=== PATIENT | male | born 1990 | race African-American/Black ===

== ENCOUNTER 2016-05-23 18:55 | Observation (INO) | payer SELFPAY ==
--- NOTE | 2016-05-23 19:23 | PDOC ---
Rapid Medical Evaluation Time Seen by Provider: 05/23/16 18:58 Medical Evaluation: 05/23/16 19:22 I have performed a brief in-person evaluation of this patient. This is a 25 yo M with no past medical history who presents to the ER with a complaint of right sided chest pain. Pain began after he got out of the Jacuzzi. No alleviating factors. Worse with movement and deep breath. Pain is associated with shortness of breath. He had this one week before that, states he had chest pain which was severe and associated with diaphoresis but resolved. He did not seek medical attention. Pertinent physical exam findings: Pt holding right side of chest Bilateral breath sounds no rash I have ordered the following: EKG CXR Labs EKG sinus rhythm, III, aVF T wave inversions The patient will proceed to the ED for further evaluation. 05/23/16 19:24 05/23/16 19:29
[2016-05-23 19:28] VITALS: BMI 32.3
--- NOTE | 2016-05-23 19:51 | PDOC ---
History of Present Illness - General Chief Complaint: Chest Pain Stated Complaint: CHEST PAIN Time Seen by Provider: 05/23/16 18:58 - History of Present Illness Initial Comments: 05/23/16 19:49 CHIEF COMPLAINT: chest pain HISTORY OF PRESENT ILLNESS: 25-year-old male with history of uncontrolled hypertension, obesity presents to ED with right-sided chest pain for the last 2 days. Patient states that he recently took a bus in from [place] for 15 hours and then is staying in a hotel with his girlfriend who is an OR tech. He states that he went to the [email or web address] at the hotel when he came in 2 days ago and when he got out of the [place] was having chest pain and was sweating a lot. Patient does report a lot of recent physical activity and using the gym in the last few days. He also reports having spasms to the hip, back, and "charley horses" to both legs. He describes this chest pain as a stabbing pain that is worsened with inspiration. He does report recent cocaine use for "about a month. " No recent travel or sick contacts. PAST MEDICAL HISTORY: Denies past medical history FAMILY HISTORY: Denies SOCIAL HISTORY: Current smoker, 1 pack daily. Recent cocaine use "for a month" , frequent marijuana use. SURGICAL HISTORY: Denies ALLERGIES: No known drug allergies REVIEW OF SYSTEMS General/Constitutional: Denies fever or chills. Denies weakness, weight change. HEENT: Denies change in vision. Denies ear pain or discharge. Denies sore throat. Cardiovascular: Right sided pleuritic chest pain. Respiratory: Denies cough, wheezing, or hemoptysis. Gastrointestinal: Denies nausea, vomiting, diarrhea or constipation. Denies rectal bleeding. Genitourinary: Denies dysuria, frequency, or change in urination. Musculoskeletal: "[place] horses to both legs." Denies joint or muscle swelling or pain. Denies neck or back pain. Skin and breasts: Denies rash or easy bruising. Neurologic: Denies headache, vertigo, loss of consciousness, or loss of sensation. PHYSICAL EXAM General Appearance: Well-appearing, appropriately dressed. No apparent distress , no intoxication. HEENT: EOMI, PERRLA, normal ENT inspection, normal voice, TMs normal, pharynx normal. No conjunctival pallor. No photophobia, scleral icterus. Neck: Supple. Trachea midline. No tenderness, rigidity, carotid bruit, stridor , lymphadenopathy, or thyromegaly. Respiratory/Chest: Lungs CTAB. Cardiovascular: RRR. S1, S2. Vascular Pulses: Dorsalis-Pedis (R): 2+, Dorsalis-Pedis (L): 2+ Gastrointestinal/Abdominal: Normal bowel sounds. Abdomen soft, non-distended. No tenderness or rebound tenderness. No organomegaly, pulsatile mass, guarding , hernia, hepatomegaly, splenomegaly. Lymphatic: No adenopathy, tenderness. Musculoskeletal/Extremities: Left calf tenderness, none to right calf. Negative Taiwo's sign b/l. Normal inspection. FROM of all extremities, normal capillary refill. Pelvis Stable. No CVA tenderness. No tenderness to extremities, pedal edema, swelling, erythema or deformity. Integumentary: Appropriate color, dry, warm. 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 Fully oriented, alert. Appropriate mood/affect. Motor strength 5/5. No appreciable EOM palsy, facial droop or sensory deficit. 05/23/16 20:46 Past History - Past Medical History Allergies/Adverse Reactions: Allergies Allergy/AdvReac Type Severity Reaction Status Date / Time No Known Allergies Allergy Verified 05/23/16 19:25 Home Medications: Ambulatory Orders NK [No Known Home Medication] 05/23/16 Other medical history: denies - Psycho/Social/Smoking Cessation Hx Suicidal Ideation: No Smoking History: Current every day smoker Number of Cigarettes Smoked Daily: 20 Information on smoking cessation initiated: Yes 'Breaking Loose' booklet given: 05/23/16 Hx Alcohol Use: No Drug/Substance Use Hx: No *Physical Exam - Vital Signs Last Vital Signs Temp Pulse Resp BP Pulse Ox 98.1 F 77 18 145/69 98 05/23/16 19:25 05/23/16 19:25 05/23/16 19:25 05/23/16 19:25 05/23/16 19:25 Heart Score/ECG Review - History History: Moderately suspicious - Electrocardiogram EKG: Non specific repolarization disturbance - Age Age: </= 45 - Risk Factors Risk Factors Heart Score: Yes Hx Hypertension, Yes Smoking History, Yes Hx Obesity Based on the list above the patient has:: >/=3 risk factors or Hx atherosclerotic disease - Troponin Troponin: </= normal limit - Score Heart Score - Total: 4 - ECG Intrepretation Rhythm: Regular Rhythm ED Treatment Course - LABORATORY CBC & Chemistry Diagram: 05/23/16 19:50 05/23/16 19:50 - ADDITIONAL ORDERS Additional order review: Laboratory Results 05/23/16 05/23/16 05/23/16 20:36 19:50 19:50 D-Dimer < 200 Sodium 133 L Potassium 3.8 Chloride 95 L Carbon Dioxide 28 Anion Gap 10 BUN 26 H Creatinine 1.8 H Creat Clearance w eGFR 45.49 Random Glucose 142 H Calcium 10.7 H Total Bilirubin 1.2 H AST 44 H ALT 59 Alkaline Phosphatase 103 Creatine Kinase 1411 H Creatine Kinase Index 0.2 CK-MB (CK-2) 2.660 CK-MB (CK-2) Rel Index Cancelled Troponin I 0.04 Total Protein 10.2 H Albumin 5.2 H 05/23/16 19:50 RBC 6.06 H MCV 88.1 MCHC 33.6 RDW 13.2 MPV 8.7 Neutrophils % 60.2 Lymphocytes % 26.5 Monocytes % 11.1 H Eosinophils % 0.9 Basophils % 1.3 - RADIOLOGY Radiology Studies Ordered: Category Date Time Status DUPLEX VASCUL US-2LEGS [US] Stat Ultrasound 05/23/16 20:14 Completed - Medications Given in the ED: ED Medications Discontinued Medications Generic Name Dose Route Start Last Admin Trade Name Freq PRN Reason Stop Dose Admin Sodium Chloride 1,000 ml 05/23/16 21:11 05/23/16 21:12 Normal Saline - IV 05/23/16 21:12 1,000 ml ONCE ONE Administration Medical Decision Making - Medical Decision Making 05/23/16 20:58 25 yo M with hx of HTN presents to ED with right sided chest pain x 2 days and bilateral leg pain -CBC, CMP, Trop, D-dimer -CXR -EKC -Duplex U/S 05/23/16 21:52 Labs: 1st trop negative at 0.4. D-dimer negative. Creatinine 1.8, BUN 26 - no baseline or hx of renal dysfunction. -1L NS Will repeat trop for GAURI. Ultrasound negative for DVT b/l. Discussed case with ER attending MD Kennedy, will obs patient for GAURI. Disucssed case with hospitalist attending MD Cota, who admits patient to obs. 05/23/16 22:18 *DC/Admit/Observation/Transfer Diagnosis at time of Disposition: Chest pain, rule out acute myocardial infarction - Discharge Dispostion Admit: Yes
[2016-05-23 20:06] LABS: BASOPHIL 1.3 % (0-2.0); EOSINOPHIL 0.9 % (0-4.5); MCH 29.6 pg (25.7-33.7); MCHC 33.6 g/dl (32.0-35.9); MEAN CELL VOLUME 88.1 fl (80-96); MEAN PLT VOLUME 8.7 fl (7.5-11.1); NEUTROPHILS 60.2 % (42.8-82.8); PLATELET COUNT 354 K/MM3 (134-434); RDW 13.2 % (11.9-15.9); WHITE BLOOD COUNT 9.6 K/mm3 (4.0-10.0)
[2016-05-23 20:19] LABS: ALBUMIN 5.2 g/dl (3.4-5.0); BILIRUBIN,TOTAL 1.2 mg/dL (0.2-1.0); CALCIUM 10.7 mg/dL (8.5-10.1); CREATININE 1.8 mg/dL (0.7-1.3); TOT PROT 10.2 g/dl (6.4-8.2)
[2016-05-23 20:31] LABS: TROPONIN I 0.04 ng/ml (0.00-0.05)
[2016-05-23] MEDS ORDERED: SODIUM CHLORIDE 0.9% 1000 ML INFUS.BAG IV ONE (21:11)
[2016-05-23 21:33] LABS: PLATELET ESTIMATE ADEQUATE (NORMAL)
[2016-05-23] MEDS ORDERED: ASPIRIN 81 MG CHEWABLE TABLETS PO ONE (21:58)
[2016-05-23] MEDS ORDERED: ASPIRIN 81 MG CHEWABLE TABLETS ONE (22:05)
--- NOTE | 2016-05-23 22:11 | PN ---
<Latanya Cota - Last Filed: 05/23/16 22:10> Teaching Attending Note Name of Resident: Antonio Quinn <Ruby Burch - Last Filed: 05/24/16 02:30> Teaching Attending Note ATTENDING PHYSICIAN STATEMENT I saw and evaluated the patient. I reviewed the resident's note and discussed the case with the resident. I agree with the resident's findings and plan as documented. SUBJECTIVE: The patient is a 25 yo M with a PMHx of cocaine use who presents with R sided chest pain for the past 2 days. The patient describes the chest pain as a stabbing sensation which is exacerbated upon deep inspiration. The patient states his chest pain is associated with diaphoresis however denies any associated chest palpitations, headache or dizziness. Recently, the patient was on a 15 hour bus trip from [place] and since arriving in [place] he has been staying at a nearby hotel. Upon using the hotels [employer], he felt diaphoretic and an immediate onset of R sided chest pain. The patient denies taking any pain medications for relief. He states has been using cocaine for the past month. Patient notes he recently donated plasma and since then has been experiencing muscle spasms. He presents to the ED for further evaluation. PMHx: uncontrolled HTN, Obesity, DORITA vs CKD PSHx: R ankle 2013 Social Hx: Smokes half pack/day, Marijuana and cocaine use Fam hx: Father with MO and Mother with Asthma OBJECTIVE: Last Vital Signs Temp Pulse Resp BP Pulse Ox 97.5 F L 58 L 18 133/78 95 05/24/16 00:00 05/24/16 00:00 05/24/16 00:00 05/24/16 00:00 05/24/16 00:00 GENERAL: Awake, alert, and fully oriented, in no acute distress HEENT: Atraumatic. PERRLA, EOMI. Moist mucosa. No JVD LUNGS: No distress, speaks full sentences, clear to auscultation bilaterally HEART:+ Tenderness to R chest wall. Regular rate and rhythm, normal S1 and S2, no murmurs, rubs or gallops, peripheral pulses normal and equal bilaterally. ABDOMEN: Soft, nontender, normoactive bowel sounds. No guarding, no rebound. No masses EXTREMITIES: Normal inspection, Normal range of motion, no edema. No clubbing or cyanosis. NEUROLOGICAL: Cranial nerves II through XII grossly intact. Normal speech, gait deferred. No focal sensorimotor deficits SKIN: +Acanthosis nigricans at the basis of neck. Warm, Dry, normal turgor, no rashes or lesions noted. CBCD WBC 9.6 K/mm3 (4.0-10.0) 05/23/16 19:50 RBC 6.06 M/mm3 (4.00-5.60) H 05/23/16 19:50 Hgb 18.0 GM/dL (11.7-16.9) H 05/23/16 19:50 Hct 53.4 % (35.4-49) H 05/23/16 19:50 MCV 88.1 fl (80-96) 05/23/16 19:50 MCHC 33.6 g/dl (32.0-35.9) 05/23/16 19:50 RDW 13.2 % (11.9-15.9) 05/23/16 19:50 Plt Count 354 K/MM3 (134-434) 05/23/16 19:50 MPV 8.7 fl (7.5-11.1) 05/23/16 19:50 CMP Sodium 133 mmol/L (136-145) L 05/23/16 19:50 Potassium 3.8 mmol/L (3.5-5.1) 05/23/16 19:50 Chloride 95 mmol/L (98-107) L 05/23/16 19:50 Carbon Dioxide 28 mmol/L (21-32) 05/23/16 19:50 Anion Gap 10 (8-16) 05/23/16 19:50 BUN 26 mg/dL (7-18) H 05/23/16 19:50 Creatinine 1.8 mg/dL (0.7-1.3) H 05/23/16 19:50 Creat Clearance w eGFR 45.49 (>60) 05/23/16 19:50 Calcium 10.7 mg/dL (8.5-10.1) H 05/23/16 19:50 Total Bilirubin 1.2 mg/dL (0.2-1.0) H 05/23/16 19:50 AST 44 U/L (15-37) H 05/23/16 19:50 ALT 59 U/L (12-78) 05/23/16 19:50 Alkaline Phosphatase 103 U/L (45-117) 05/23/16 19:50 Total Protein 10.2 g/dl (6.4-8.2) H 05/23/16 19:50 Albumin 5.2 g/dl (3.4-5.0) H 05/23/16 19:50 ASSESSMENT AND PLAN: Plan: 1.)DORITA vs questionable CKD secondary to rhabdomyolysis -IVF 150 cc/hr -Check Urine myoglobins -Urine electrolytes -Calculate FeNa -Repeat BMP in AM -Trend tropinin -Utox -Hemoglobin A1C levels Admit to Tele observation for continuous cardiac monitoring. Documentation prepared by Ruby Burch, acting as medical services assistant for Latanya Cota MD, MD.
[2016-05-23 23:59] LABS: URINE APPEARANCE SLCLOUDY; URINE BILIRUBIN NEGATIVE (NEGATIVE); URINE BLOOD NEGATIVE (NEGATIVE); URINE COLOR AMBER; URINE GLUCOSE (UA) NEGATIVE (NEGATIVE); URINE KETONE TRACE (NEGATIVE); URINE LEUK ESTERASE NEGATIVE (NEGATIVE); URINE NITRITE NEGATIVE (NEGATIVE); URINE UROBILINOGEN NEGATIVE E.U./dl (0.2-1.0)
[2016-05-24 00:01] LABS: URINE PROTEIN 3+ (NEGATIVE)
[2016-05-24 00:02] LABS: URINE BACTERIA FEW /hpf (NONE SEEN); URINE HYALINE CAST 45 /lpf; URINE MUCUS MANY; URINE RBC 3 /hpf (0-3); URINE WBC 4 /hpf (3-5)
--- NOTE | 2016-05-24 02:05 | HP ---
CHIEF COMPLAINT: chest pain PCP: physician in [place] HISTORY OF PRESENT ILLNESS: 25 y/o M w/PMH of HTN presents to ER w/ R sided chest pain which has worsened over last 2 days. Pt has had this pain for 2 weeks, is stabbing, worse with movement and inspiration. 2 days ago pt was coming out of a jacuzzi and he felt R sided chest pain with diaphoresis. Pt recently came from [place] via 15 hour bus ride a few days ago. He also has been exercising (lifting weights) recently and states sometimes he brings weights down and hits his chest with weights. He has not been drinking much water and has donated blood approximately 3 days ago. At times he feels like he is getting dizzy especially after coming out from hot areas such as the jacuzzi or sauna. He has been having muscle spasms in his back, hips, and calves. Pt does not take anti-hypertensive meds as he was diagnosed with HTN 2-3 months ago and has been trying lifestyle modifications to help control htn. Pt did not admit to me cocaine use as his girlfriend was at bedside but according to ER notes he has been using cocaine for past month. Pt does state he smokes marijuana and that he smokes 1/2 ppd cigarettes. Denies SOB, palpitations, abd pain, diarrhea, constipation. ER course was notable for: (1) ASA, IVF, EKG (2) (3) Recent Travel: 15 hour bus trip from [place] to [facility]. PAST MEDICAL HISTORY: HTN (diagnosed 2-3 mo ago) PAST SURGICAL HISTORY: R ankle surgery 2013. Social History: Smokin/2 ppd Alcohol: social Drugs: marijuana, cocaine Family History: Mother: Asthma; 1st cousin of GA at age 26 Allergies No Known Allergies Allergy (Verified 05/23/16 19:25) HOME MEDICATIONS: Home Medications Medication Instructions Recorded NK [No Known Home Medication] 05/23/16 REVIEW OF SYSTEMS CONSTITUTIONAL: Absent: fever, chills, diaphoresis, generalized weakness, malaise, loss of appetite, weight change HEENT: Absent: rhinorrhea, nasal congestion, throat pain, throat swelling, difficulty swallowing, mouth swelling, ear pain, eye pain, visual changes CARDIOVASCULAR: Chest pain, dizziness Absent: syncope, palpitations, irregular heart rate, lightheadedness, peripheral edema RESPIRATORY: Absent: cough, shortness of breath, dyspnea with exertion, orthopnea, wheezing, stridor, hemoptysis GASTROINTESTINAL: Absent: abdominal pain, abdominal distension, nausea, vomiting, diarrhea, constipation, melena, hematochezia GENITOURINARY: Absent: dysuria, frequency, urgency, hesitancy, hematuria, flank pain, genital pain MUSCULOSKELETAL: muscle spasms at multiple locations (back, calves, hips) Absent: myalgia, arthralgia, joint swelling, back pain, neck pain SKIN: Absent: rash, itching, pallor HEMATOLOGIC/IMMUNOLOGIC: Absent: easy bleeding, easy bruising, lymphadenopathy, frequent infections ENDOCRINE: Absent: unexplained weight gain, unexplained weight loss, heat intolerance, cold intolerance NEUROLOGIC: dizziness Absent: headache, focal weakness or paresthesias, dizziness, unsteady gait, seizure, mental status changes, bladder or bowel incontinence PSYCHIATRIC: Absent: anxiety, depression, suicidal or homicidal ideation, hallucinations. PHYSICAL EXAMINATION Vital Signs Temperature 97.5 F L 05/24/16 00:00 Pulse Rate 58 L 05/24/16 00:00 Respiratory Rate 18 05/24/16 00:00 Blood Pressure 133/78 05/24/16 00:00 O2 Sat by Pulse Oximetry (%) 95 05/24/16 00:00 GENERAL: Awake, alert, and fully oriented, in no acute distress. HEAD: Normal with no signs of trauma. EYES: extraocular movements intact, sclera anicteric, conjunctiva clear. No lid lag. EARS, NOSE, THROAT: Ears normal, nares patent. Moist mucous membranes. NECK: Normal range of motion, supple without lymphadenopathy, JVD, or masses. LUNGS: Breath sounds equal, clear to auscultation bilaterally. No wheezes, and no crackles. No accessory muscle use. HEART: Regular rate and rhythm, normal S1 and S2 without murmur, rub or gallop. ABDOMEN: Soft, nontender, not distended, normoactive bowel sounds, no guarding, no rebound, no masses. No hepatomegaly or splenomegaly. MUSCULOSKELETAL: R chest wall tenderness LOWER EXTREMITIES: 2+ pulses, warm, well-perfused. L calf tenderness (at site of previous muscle spasm as per pt). No peripheral edema. NEUROLOGICAL: Normal speech. Gait not observed. PSYCHIATRIC: Cooperative. Good eye contact. Appropriate mood and affect. SKIN: Warm, dry, normal turgor, no rashes or lesions noted. CBCD WBC 9.6 K/mm3 (4.0-10.0) 05/23/16 19:50 RBC 6.06 M/mm3 (4.00-5.60) H 05/23/16 19:50 Hgb 18.0 GM/dL (11.7-16.9) H 05/23/16 19:50 Hct 53.4 % (35.4-49) H 05/23/16 19:50 MCV 88.1 fl (80-96) 05/23/16 19:50 MCHC 33.6 g/dl (32.0-35.9) 05/23/16 19:50 RDW 13.2 % (11.9-15.9) 05/23/16 19:50 Plt Count 354 K/MM3 (134-434) 05/23/16 19:50 MPV 8.7 fl (7.5-11.1) 05/23/16 19:50 CMP Sodium 133 mmol/L (136-145) L 05/23/16 19:50 Potassium 3.8 mmol/L (3.5-5.1) 05/23/16 19:50 Chloride 95 mmol/L (98-107) L 05/23/16 19:50 Carbon Dioxide 28 mmol/L (21-32) 05/23/16 19:50 Anion Gap 10 (8-16) 05/23/16 19:50 BUN 26 mg/dL (7-18) H 05/23/16 19:50 Creatinine 1.8 mg/dL (0.7-1.3) H 05/23/16 19:50 Creat Clearance w eGFR 45.49 (>60) 05/23/16 19:50 Random Glucose 142 mg/dL (74-106) H 05/23/16 19:50 Calcium 10.7 mg/dL (8.5-10.1) H 05/23/16 19:50 Total Bilirubin 1.2 mg/dL (0.2-1.0) H 05/23/16 19:50 AST 44 U/L (15-37) H 05/23/16 19:50 ALT 59 U/L (12-78) 05/23/16 19:50 Alkaline Phosphatase 103 U/L (45-117) 05/23/16 19:50 Total Protein 10.2 g/dl (6.4-8.2) H 05/23/16 19:50 Albumin 5.2 g/dl (3.4-5.0) H 05/23/16 19:50 CARDIAC ENZYMES Creatine Kinase 1411 IU/L (39-308) H 05/23/16 19:50 Troponin I 0.04 ng/ml (0.00-0.05) 05/24/16 01:00 Laboratory Tests 05/23/16 20:36 D-Dimer < 200 Urine Test Results Urine Color Maria T 05/23/16 23:44 Urine Appearance Slcloudy 05/23/16 23:44 Urine pH 5.0 (5.0-8.0) 05/23/16 23:44 Ur Specific [place] 1.033 (1.001-1.035) 05/23/16 23:44 Urine Protein 3+ (NEGATIVE) H 05/23/16 23:44 Urine Glucose (UA) Negative (NEGATIVE) 05/23/16 23:44 Urine Ketones Trace (NEGATIVE) H 05/23/16 23:44 Urine Blood Negative (NEGATIVE) 05/23/16 23:44 Urine Nitrite Negative (NEGATIVE) 05/23/16 23:44 Urine Bilirubin Negative (NEGATIVE) 05/23/16 23:44 Ur Leukocyte Esterase Negative (NEGATIVE) 05/23/16 23:44 Urine RBC 3 /hpf (0-3) 05/23/16 23:44 Urine WBC 4 /hpf (3-5) 05/23/16 23:44 Ur Epithelial Cells Rare /hpf (FEW) 05/23/16 23:44 Urine Bacteria Few /hpf (NONE SEEN) 05/23/16 23:44 Urine Mucus Many 05/23/16 23:44 CXR: pending official read, no acute pathology on my read. U/S duplex: b/l LE: no evidence of DVT Active Medications Sodium Chloride (Normal Saline -) 1,000 mls @ 150 mls/hr IV ASDIR ADOLFO ASSESSMENT/PLAN: 25 y/o M w/PMH of HTN presents to ER w/ R sided chest pain. Admitted to obs to r /o GA. -Atypical chest pain -reproducible r sided chest pain -most likely costochondritis -will avoid NSAIDs at this time due to DORITA vs CKD -tylenol for pain -trops neg x 2, f/u morning trop -d-dimer negative; U/S B/L LE : no evidence of DVT -EKG: No st segment changes -f/u utox -DORITA vs CKD secondary to rhabdomyolysis and dehdyration -creatine kinase: 1411; BUN/Cr 26/1.8 -pt states he follows yearly for physical with PCP and no abnormalities were noted to him on labs previously -NS @ 150 ml/hr -f/u creatine kinase, BUN/Cr, urine electrolytes to calculate FeNa, urine myoglobins -f/u a1c -Polycythemia secondary to dehydration -has not been drinking water, recently donated blood approx 3 days ago -monitor cbc -HTN -will not give meds for now, lifestyle modifications -avoid beta blockers w/hx of cocaine use -Smoking history -counseled on smoking cessation -Marijuana/Cocaine use -counseled on drug use cessation -Hyperglycemia -f/u a1c -FEN -NS @ 150 ml/hr -hyponatremia, hypochloremia, monitor lytes in AM since pt is now on NS -sodium controlled diet -Dispo: Monitor in obs on tele Problem List - Problem (1) Chest pain, rule out acute myocardial infarction Code(s): R07.9 - CHEST PAIN, UNSPECIFIED (2) Costochondritis Code(s): M94.0 - CHONDROCOSTAL JUNCTION SYNDROME [TIETZE] (3) DORITA (acute kidney injury) Code(s): N17.9 - ACUTE KIDNEY FAILURE, UNSPECIFIED (4) CKD (chronic kidney disease) Code(s): N18.9 - CHRONIC KIDNEY DISEASE, UNSPECIFIED (5) Rhabdomyolysis Code(s): M62.82 - RHABDOMYOLYSIS (6) Dehydration Code(s): E86.0 - DEHYDRATION (7) Polycythemia Code(s): D75.1 - SECONDARY POLYCYTHEMIA (8) HTN (hypertension) Code(s): I10 - ESSENTIAL (PRIMARY) HYPERTENSION (9) Smoking history Code(s): Z87.891 - PERSONAL HISTORY OF NICOTINE DEPENDENCE (10) Cocaine use Code(s): F14.10 - COCAINE ABUSE, UNCOMPLICATED (11) Chest pain Code(s): R07.9 - CHEST PAIN, UNSPECIFIED (12) Hyperglycemia Code(s): R73.9 - HYPERGLYCEMIA, UNSPECIFIED Visit type - Emergency Visit Emergency Visit: Yes ED Registration Date: 05/23/16 Care time: The patient presented to the Emergency Department on the above date and was hospitalized for further evaluation of their emergent condition. - New Patient This patient is new to me today: Yes Date on this admission: 05/24/16 - Critical Care Critical Care patient: No
[2016-05-24] MEDS ORDERED: SODIUM CHLORIDE 1,000 ML IV SCH (02:15)
[2016-05-24] MEDS ORDERED: ACETAMINOPHEN 325 MG TABLET (FP) PO PRN (02:44)
[2016-05-24 08:08] LABS: MCH 29.5 pg (25.7-33.7); MCHC 33.2 g/dl (32.0-35.9); MEAN PLT VOLUME 8.6 fl (7.5-11.1); PLATELET COUNT 247 K/MM3 (134-434); WHITE BLOOD COUNT 6.6 K/mm3 (4.0-10.0)
[2016-05-24 08:11] VITALS: BP 122/72; PULSE 56; TEMP 96.8
[2016-05-24 08:29] LABS: ALBUMIN 3.7 g/dl (3.4-5.0); ANION GAP 8 (8-16); CALCIUM 8.6 mg/dL (8.5-10.1); CO2 24 mmol/L (21-32); GLUCOSE,RANDOM 126 mg/dL (74-106); SGOT/AST 30 U/L (15-37); SGPT/ALT 41 U/L (12-78)
[2016-05-24 08:32] LABS: ALK PHOS 74 U/L (45-117); TOT PROT 7.2 g/dl (6.4-8.2)
[2016-05-24 09:05] LABS: TROPONIN I 0.04 ng/ml (0.00-0.05)
[2016-05-24 09:21] LABS: URINE MARIJUANA THC POSITIVE ng/ml (CUTOFF=50)
--- NOTE | 2016-05-24 11:39 | EKG ---
Test Reason : Blood Pressure : / mmHG Vent. Rate : 080 BPM Atrial Rate : 080 BPM P-R Int : 140 ms QRS Dur : 086 ms QT Int : 358 ms P-R-T Axes : 042 077 -02 degrees QTc Int : 412 ms POOR DATA QUALITY, INTERPRETATION MAY BE ADVERSELY AFFECTED NORMAL SINUS RHYTHM T WAVE ABNORMALITY, CONSIDER INFERIOR ISCHEMIA ABNORMAL ECG NO PREVIOUS ECGS AVAILABLE Confirmed by ANITA DEGROOT, FLORA ([id number]) on 05/24/2016 11:38:36 AM Referred By: Confirmed By:FLORA HOWARD MD
--- NOTE | 2016-05-24 11:49 | DS ---
Physical Exam: SUBJECTIVE: Patient seen and examined Patient resting in chair NAD. No acute events. Afebrile and hemodynamically stable. Feels well, chest wall pain almost resolved, still a bit sore. denies sob, palpitations, loc, dizziness, abd pain, diarrhea, constipation. OBJECTIVE: Vital Signs Period Temp Pulse Resp BP Sys/[place] Pulse Ox Last 24 Hr 96.8 F-98.7 F 56-64 18-20 111-162/59-91 95-99 PHYSICAL EXAM GENERAL: Awake, alert, and fully oriented, in no acute distress. HEAD: Normal with no signs of trauma. EYES: extraocular movements intact, sclera anicteric, conjunctiva clear. No lid lag. EARS, NOSE, THROAT: Ears normal, nares patent. Moist mucous membranes. NECK: Normal range of motion, supple without lymphadenopathy, JVD, or masses. LUNGS: Breath sounds equal, clear to auscultation bilaterally. No wheezes, and no crackles. No accessory muscle use. HEART: Regular rate and rhythm, normal S1 and S2 without murmur, rub or gallop. ABDOMEN: Soft, nontender, not distended, normoactive bowel sounds, no guarding, no rebound, no masses. No hepatomegaly or splenomegaly. MUSCULOSKELETAL: mild R chest wall tenderness LOWER EXTREMITIES: 2+ pulses, warm, well-perfused. L calf tenderness (at site of previous muscle spasm as per pt). No peripheral edema. NEUROLOGICAL: Normal speech. Gait not observed. PSYCHIATRIC: Cooperative. Good eye contact. Appropriate mood and affect. SKIN: Warm, dry, normal turgor, no rashes or lesions noted. LABS Laboratory Results - last 24 hr 05/23/16 05/24/16 05/24/16 23:44 01:00 05:35 WBC 6.6 D RBC 5.05 Hgb 14.9 D Hct 45.0 D MCV 89.0 MCHC 33.2 RDW 13.0 Plt Count 247 D MPV 8.6 Sodium Potassium Chloride Carbon Dioxide Anion Gap BUN Creatinine Creat Clearance w eGFR Random Glucose Hemoglobin A1c % Calcium Total Bilirubin AST ALT Alkaline Phosphatase Creatine Kinase Creatine Kinase Index CK-MB (CK-2) CK-MB (CK-2) Rel Index Troponin I 0.04 Total Protein Albumin Urine Color Maria T Urine Appearance Slcloudy Urine pH 5.0 Ur Specific [place] 1.033 Urine Protein 3+ H Urine Glucose (UA) Negative Urine Ketones Trace H Urine Blood Negative Urine Nitrite Negative Urine Bilirubin Negative Urine Urobilinogen Negative Ur Leukocyte Esterase Negative Urine RBC 3 Urine WBC 4 Ur Epithelial Cells Rare Urine Bacteria Few Hyaline Casts 45 Urine Mucus Many Opiates Screen Methadone Screen Barbiturate Screen Phencyclidine Screen Ur Amphetamines Screen MDMA (Ecstasy) Screen Benzodiazepines Screen Cocaine Screen U Marijuana (THC) Screen 05/24/16 05/24/16 05/24/16 05:35 05:35 05:35 WBC RBC Hgb Hct MCV MCHC RDW Plt Count MPV Sodium 138 Potassium 3.7 Chloride 106 D Carbon Dioxide 24 Anion Gap 8 BUN 24 H Creatinine 1.0 D Creat Clearance w eGFR > 60 Random Glucose 126 H Hemoglobin A1c % 6.2 H Calcium 8.6 Total Bilirubin 1.0 AST 30 D ALT 41 D Alkaline Phosphatase 74 D Creatine Kinase 933 H D Creatine Kinase Index 0.2 CK-MB (CK-2) 2.380 CK-MB (CK-2) Rel Index Troponin I 0.04 Cancelled Total Protein 7.2 D Albumin 3.7 D Urine Color Urine Appearance Urine pH Ur Specific [place] Urine Protein Urine Glucose (UA) Urine Ketones Urine Blood Urine Nitrite Urine Bilirubin Urine Urobilinogen Ur Leukocyte Esterase Urine RBC Urine WBC Ur Epithelial Cells Urine Bacteria Hyaline Casts Urine Mucus Opiates Screen Methadone Screen Barbiturate Screen Phencyclidine Screen Ur Amphetamines Screen MDMA (Ecstasy) Screen Benzodiazepines Screen Cocaine Screen U Marijuana (THC) Screen 05/24/16 05/24/16 05:35 06:00 WBC RBC Hgb Hct MCV MCHC RDW Plt Count MPV Sodium Potassium Chloride Carbon Dioxide Anion Gap BUN Creatinine Creat Clearance w eGFR Random Glucose Hemoglobin A1c % Calcium Total Bilirubin AST ALT Alkaline Phosphatase Creatine Kinase Creatine Kinase Index CK-MB (CK-2) CK-MB (CK-2) Rel Index Cancelled Troponin I Total Protein Albumin Urine Color Urine Appearance Urine pH Ur Specific [place] Urine Protein Urine Glucose (UA) Urine Ketones Urine Blood Urine Nitrite Urine Bilirubin Urine Urobilinogen Ur Leukocyte Esterase Urine RBC Urine WBC Ur Epithelial Cells Urine Bacteria Hyaline Casts Urine Mucus Opiates Screen Negative Methadone Screen Negative Barbiturate Screen Negative Phencyclidine Screen Negative Ur Amphetamines Screen Negative MDMA (Ecstasy) Screen Negative Benzodiazepines Screen Negative Cocaine Screen Negative U Marijuana (THC) Screen Positive HOSPITAL COURSE: Date of Admission:05/23/16 Imaging: CXR: no acute pathology U/S duplex: b/l LE: no evidence of DVT Patient is a 25 yo M with PMH of HTN who presented to ER with R sided reproducible chest pain. Pt has had this pain for 2 weeks, is stabbing, worse with movement and inspiration. He has been working out a lot and not hydrating. Pt recently came from [place] via [address] ride. He has donated blood approximately 3 days ago. He was admitted to observation for atypical chest pain , that is musculoskeletal and exercise related. He was found to be dehydrated and was treated with IVF. His DORITA resolved. His 3+ proteinuria was due to urine myoglobin from rhabdo (he has been exercising a lot). He was found to be pre diabetic a1c=6.2. He was advised to adhere to a healthier diet and hydration. He was advised to f/u with PCP and nephrology. Date of Discharge: 05/24/16 Minutes to complete discharge: 30 (na) Discharge Summary Reason For Visit: CHEST PAIN/R/O ACUTE MYOCARDIAL INFARCT Current Active Problems DORITA (acute kidney injury) (Acute) CKD (chronic kidney disease) (Acute) Chest pain (Acute) Chest pain, rule out acute myocardial infarction (Acute) Cocaine use (Acute) Costochondritis (Acute) Dehydration (Acute) HTN (hypertension) (Acute) Hyperglycemia (Acute) Polycythemia (Acute) Rhabdomyolysis (Acute) Smoking history (Acute) Condition: Good - Instructions Diet, Activity, Other Instructions: You presented with chest pain, it is musculoskeletal in nature, likely from weight lifting. You were found to be in a dehydrated state and were treated with intravenous fluids. The lack of water in your body in combination with muscle breakdown from exercise caused some injury to your kidneys. That resolved with fluid intake. You were also found to be pre-diabetic. We advise you to eat healthy, drink more water and exercise. Please follow up with your primary doctor to check kidney function and to check your sugar. We advise you to follow up with a kidney doctor as well. Return to the hospital if symptoms return. Disposition: HOME - Home Medications Comprehensive Discharge Medication List: Ambulatory Orders NK [No Known Home Medication] 05/23/16 This patient is new to me today: Yes Date on this admission: 05/24/16 Emergency Visit: Yes ED Registration Date: 05/23/16 Care time: The patient presented to the Emergency Department on the above date and was hospitalized for further evaluation of their emergent condition. Critical Care patient: No - Discharge Referral Referred to [facility] No
--- NOTE | 2016-05-24 19:14 | PN ---
Teaching Attending Note Name of Resident: Ema Gregg ATTENDING PHYSICIAN STATEMENT I saw and evaluated the patient. I reviewed the resident's note and discussed the case with the resident. I agree with the resident's findings and plan as documented. Vital Signs Temperature 96.8 F L 05/24/16 08:09 Pulse Rate 56 L 05/24/16 08:09 Respiratory Rate 18 05/24/16 08:09 Blood Pressure 122/72 05/24/16 08:09 O2 Sat by Pulse Oximetry (%) 95 05/24/16 00:00 CBCD WBC 6.6 K/mm3 (4.0-10.0) D 05/24/16 05:35 RBC 5.05 M/mm3 (4.00-5.60) 05/24/16 05:35 Hgb 14.9 GM/dL (11.7-16.9) D 05/24/16 05:35 Hct 45.0 % (35.4-49) D 05/24/16 05:35 MCV 89.0 fl (80-96) 05/24/16 05:35 MCHC 33.2 g/dl (32.0-35.9) 05/24/16 05:35 RDW 13.0 % (11.9-15.9) 05/24/16 05:35 Plt Count 247 K/MM3 (134-434) D 05/24/16 05:35 MPV 8.6 fl (7.5-11.1) 05/24/16 05:35 CMP Sodium 138 mmol/L (136-145) 05/24/16 05:35 Potassium 3.7 mmol/L (3.5-5.1) 05/24/16 05:35 Chloride 106 mmol/L (98-107) D 05/24/16 05:35 Carbon Dioxide 24 mmol/L (21-32) 05/24/16 05:35 Anion Gap 8 (8-16) 05/24/16 05:35 BUN 24 mg/dL (7-18) H 05/24/16 05:35 Creatinine 1.0 mg/dL (0.7-1.3) D 05/24/16 05:35 Creat Clearance w eGFR > 60 (>60) 05/24/16 05:35 Random Glucose 126 mg/dL (74-106) H 05/24/16 05:35 Calcium 8.6 mg/dL (8.5-10.1) 05/24/16 05:35 Total Bilirubin 1.0 mg/dL (0.2-1.0) 05/24/16 05:35 AST 30 U/L (15-37) D 05/24/16 05:35 ALT 41 U/L (12-78) D 05/24/16 05:35 Alkaline Phosphatase 74 U/L (45-117) D 05/24/16 05:35 Total Protein 7.2 g/dl (6.4-8.2) D 05/24/16 05:35 Albumin 3.7 g/dl (3.4-5.0) D 05/24/16 05:35 CARDIAC ENZYMES Creatine Kinase 933 IU/L (39-308) H D 05/24/16 05:35 Troponin I 0.04 ng/ml (0.00-0.05) 05/24/16 05:35 Home Medications Medication Instructions Recorded [No Known Home Medication] 05/23/16 ASSESSMENT AND PLAN: 25 y/o M w/PMH of HTN presents to ER w/ R sided chest pain. Admitted to obs to r /o [place]. #Atypical chest pain most likely due to cocaine use, acs WAS ruled out ;trops neg x 2; d-dimer negative; U/S B/L LE : no evidence of DVT; NO EKG changes #DORITA vs CKD due to rhabdomyolysis due to cocaine with proteinurea and dehdyration; creatine kinase: 1411--> repeat 933, IVF was continued , BUN/Cr 26/ 1.8--24/1.0 post IVF - # Polycythemia secondary to dehydration s/p IVF #HTN to be followed with PMD since patient , possible elevation due to Cocaine in the urine #Smoking history counseled on smoking cessation #Marijuana/Cocaine use counseled on drug use cessation #Hyperglycemia hemoglobin A1c 6.2 patient was counseled for life change modification
== END 2016-05-24 13:05 | disposition home or self-care (01) ==
LOC: JER 18:55 → JERBED 22:21 → UNDOADMOB 23:12 → JERBED 23:12 → J4W 05-24 01:00
PROVIDERS: ADMIT Internal Medicine; ATTEND Internal Medicine
DX: N17.9 Acute kidney failure, unspecified (principal); R07.89 Other chest pain; F17.210 Nicotine dependence, cigarettes, uncomplicated; I10 Essential (primary) hypertension; E66.8 Other obesity; Z68.32 Body mass index [BMI] 32.0-32.9, adult; Z71.3 Dietary counseling and surveillance; M62.82 Rhabdomyolysis; E86.0 Dehydration; D75.1 Secondary polycythemia; R73.9 Hyperglycemia, unspecified; I12.9 Hypertensive chronic kidney disease with stage 1 through stage 4 chronic kidney disease, or unspecified chronic kidney disease; N18.9 Chronic kidney disease, unspecified; F14.10 Cocaine abuse, uncomplicated; F12.10 Cannabis abuse, uncomplicated
CPT/HCPCS: 36415; 71020-TC; 80053; 80307; 81003; 81015; 82436; 82550; 82553; 82570; 83036; 83874; 84133; 84300; 84484; 85025; 85027; 85379; 93005; 93010; 93970-TC; 99284-25; G0378